=== PATIENT | female | born 1990 | race Caucasian/White ===

== ENCOUNTER 2016-07-01 11:35 | Emergency (ER) | payer OTHER | END 2016-07-01 12:33 | disposition home or self-care (01) | LOC: ER 11:35 | DX: J02.9 Acute pharyngitis, unspecified (principal) | CPT/HCPCS: 87651 ==

== ENCOUNTER 2016-08-04 19:32 | Emergency (ER) | payer OTHER | END 2016-08-04 22:43 | disposition home or self-care (01) | LOC: ER 19:32 | DX: O21.1 Hyperemesis gravidarum with metabolic disturbance (principal); Z98.890 Other specified postprocedural states; Z79.899 Other long term (current) drug therapy; Z3A.08 8 weeks gestation of pregnancy | CPT/HCPCS: 36415; 96361; 96374; 96375; J1200; J2550 ==